=== PATIENT | female | born 1965 | race Caucasian/White ===

== ENCOUNTER 2021-06-12 09:20 | Outpatient (CLI) | payer BC ==
[2021-06-13 00:04] LABS: SARS-CoV-2 PCR by NAA Not Detected (NotDetected)
== END 2021-06-12 09:21 | disposition home or self-care (01) ==
LOC: CSHLAB 09:20
PROVIDERS: ATTEND Otolaryngology Otolaryngic Allergy
DX: Z01.818 Encounter for other preprocedural examination (principal); Z20.822 Contact with and (suspected) exposure to COVID-19; J38.7 Other diseases of larynx
CPT/HCPCS: 85014; 93005; 93010; U0003; U0005

== ENCOUNTER 2021-06-17 08:34 | Day surgery (SDC) | payer BC ==
[2021-06-16 13:06] VITALS: BMI 29.2
[~2021-06-17 08:34] MED LIST: Dexamethasone 20 MG/5 ML VIAL ONE; EPINEPHrine 1 MG/ML AMP ONE; Fentanyl 100 MCG/2 ML VIAL ONE; Glycopyrrolate 0.2 MG/ML 5 ML SYRINGE ONE; Midazolam HCl 2 mg/2 ml Vial ONE; Ondansetron PF 4 MG/2 ML Vial ONE; PROPOFOL 20 ML ONE; PROPOFOL 40 ML ONE; Rocuronium Bromide 10 MG/ML (10ML VIAL) ONE; SUGAMMADEX SODIUM 200 MG/2 ML VIAL ONE
[2021-06-17] MEDS ORDERED: Lidocaine 1% MPF 2 ML VIAL ONE (08:46)
== END 2021-06-17 11:05 | disposition home or self-care (01) ==
LOC: CSHSDC 08:34
PROVIDERS: ATTEND Otolaryngology Otolaryngic Allergy
PROC: 0CBM8ZX Excision of Pharynx, Via Natural or Artificial Opening Endoscopic, Diagnostic (ICD-10-PCS; principal; 2021-06-17)
PROC: 0CBS8ZZ Excision of Larynx, Via Natural or Artificial Opening Endoscopic (ICD-10-PCS; principal; 2021-06-17)
DX: J38.7 Other diseases of larynx (principal); D37.05 Neoplasm of uncertain behavior of pharynx; J35.1 Hypertrophy of tonsils; F17.210 Nicotine dependence, cigarettes, uncomplicated; Z90.710 Acquired absence of both cervix and uterus
CPT/HCPCS: 88305; 88341; 88342; J0171; J1100; J2250; J2405; J2704; J3010